=== PATIENT | male | born 1980 | race African-American/Black ===

== ENCOUNTER 2016-08-20 01:56 | Emergency (ER) | payer SELFPAY ==
[~2016-08-20] VITALS: Ht 190.5 cm; Wt 93.9 kg
[~2016-08-20 01:56] MED LIST: MORP20SO PO; NORT10CA PO; OXYC20 PO
[2016-08-20 02:04] VITALS: BP 137/86; PULSE 85; RESP 18; TEMP 97.6; O2SAT 98
[2016-08-20] MEDS ORDERED: ADDE30TA PO (02:04)
[2016-08-20] MEDS ORDERED: SODIUM CHLOR 0.9% 1000 ML INJ 1,000 ML IV SCH (02:19)
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
[2016-08-20] MEDS ORDERED: LIDOCAINE VISCOUS 2% SOLN 15 ML UDC PO ONE (02:30)
[2016-08-20] MEDS ORDERED: ALUMINUM/MAGNESIUM/SIMETH 30 ML CUP PO ONE (02:30)
[2016-08-20] MEDS ORDERED: SODIUM CHLORIDE 0.9% FLUSH 10 ML FLUSH IVF PRN (02:30)
[2016-08-20] MEDS: NITROGLYCERIN 0.4 MG SL 25 TABS/BTL SL SCH ×3 (02:30→02:40)
[2016-08-20] MEDS ORDERED: FAMOTIDINE 20 MG/2 ML VIAL IV PUSH ONE (02:30)
[2016-08-20] MEDS ORDERED: PANTOPRAZOLE SODIUM 40 MG VIAL IVP ONE (02:30)
[2016-08-20] MEDS ORDERED: ASPIRIN 325 MG TAB PO ONE (02:30)
[2016-08-20 02:32] LABS: BASOPHIL # 0.1 TH/MM3 (0-0.2); BASOPHIL % 0.9 % (0.0-2.0); EOSINOPHIL # 0.2 TH/MM3 (0-0.4); EOSINOPHIL % 2.6 % (0.0-4.0); HEMATOCRIT 43.5 % (39.0-51.0); HEMO FLAGS DIFF FINAL; LYMPH % 32.7 % (9.0-44.0); LYMPHOCYTE # 2.9 TH/MM3 (1.0-4.8); MEAN CELL VOLUME 85.6 FL (80.0-100.0); MEAN CORPUSCULAR HEMOGLOBIN 28.3 PG (27.0-34.0); MONO % 5.3 % (0.0-8.0); NEUT % 58.5 % (16.0-70.0); PLATELET COUNT 253 TH/MM3 (150-450); RED BLOOD COUNT 5.08 MIL/MM3 (4.50-5.90); RED CELL DISTRIBUTION WIDTH 13.3 % (11.6-17.2); WHITE BLOOD COUNT 8.7 TH/MM3 (4.0-11.0)
[2016-08-20 02:38] LABS: CHLORIDE 106 MEQ/L (98-107); POTASSIUM 3.3 MEQ/L (3.5-5.1); SODIUM (NA) 141 MEQ/L (136-145)
[2016-08-20 02:42] LABS: ANION GAP 5 MEQ/L (5-15); BICARBONATE 29.6 MEQ/L (21.0-32.0); BLOOD UREA NITROGEN 14 MG/DL (7-18)
[2016-08-20 02:45] LABS: ALT (GPT) 87 U/L (12-78); AST (GOT) 36 U/L (15-37); GLOMERULAR FILTRATION RATE 102 ML/MIN (>89)
[2016-08-20 02:46] LABS: TOTAL BILIRUBIN ADULT 0.3 MG/DL (0.2-1.0)
[2016-08-20 02:48] LABS: ALKALINE PHOSPHATASE 69 U/L (45-117)
--- NOTE | 2016-08-20 02:53 | RADHPO ---
EXAM DATE/TIME: 08/20/2016 02:34 [facility] COMPARISON: No previous studies available for comparison. INDICATIONS : Chest pain for 2 hours MEDICAL HISTORY : None. SURGICAL HISTORY : None. ENCOUNTER: Initial ACUITY: 1 day PAIN SCORE: 8/10 LOCATION: Center of chest FINDINGS: PA and lateral views of the chest demonstrate the lungs to be symmetrically aerated without evidence of mass, infiltrate or effusion. The cardiomediastinal contours are unremarkable. Osseous structure s are intact. CONCLUSION: No acute disease. James Figueroa MD on August 20, 2016 at 2:50 Board Certified Radiologist. This report was verified electronically.
[2016-08-20 03:24] VITALS: BP 136/66; PULSE 65; RESP 18; O2SAT 98
[2016-08-20] MEDS ORDERED: POTASSIUM CHLORIDE 20 MEQ CONTROLLED RELEASE TAB PO ONE (03:30)
[2016-08-20] MEDS ORDERED: OMEP20TA PO (03:31)
--- NOTE | 2016-08-20 11:49 | EKG ---
Date Performed: 08/20/2016 Time Performed: 01:58:56 PTAGE: 36 years EKG: Sinus rhythm . Normal ECG PREVIOUS TRACING : 10/28/2003 14.07 Compared to prior tracing no significant change DOCTOR: Glenn France Interpretating Date/Time 08/20/2016 11:47:42
== END 2016-08-20 03:43 | disposition home or self-care (01) ==
LOC: PHED 01:56
DX: R07.89 Other chest pain (principal); F17.200 Nicotine dependence, unspecified, uncomplicated
CPT/HCPCS: 71020; 80053; 83690; 84484; 85025; 93005; 96361; 96374; 96375; 99285; C9113; J7030